=== PATIENT | male | born 1930 | race Caucasian/White ===

== ENCOUNTER 2017-11-21 16:44 | Emergency (ER) | payer MEDICARE ==
--- NOTE | 2017-11-21 17:45 | RADRPT ---
EXAM DATE/TIME: 11/21/2017 17:23 [place] COMPARISON: No previous studies available for comparison. INDICATIONS : Chest pain. MEDICAL HISTORY : None. SURGICAL HISTORY : None. ENCOUNTER: Initial ACUITY: 1 day PAIN SCORE: 3/10 LOCATION: Bilateral chest FINDINGS: A single view of the chest demonstrates the lungs to be symmetrically aerated without evidence of mas s, infiltrate or effusion. The cardiomediastinal contours are unremarkable. Osseous structures are intact. CONCLUSION: No acute disease. Yoan Rowan Jr., MD on November 21, 2017 at 17:43 Board Certified Radiologist. This report was verified electronically.
[2017-11-21 17:59] LABS: AUTOMATED NEUTROPHIL # 13.5 TH/MM3 (1.8-7.7); BASOPHIL % 0.3 % (0.0-2.0); EOSINOPHIL # 0.1 TH/MM3 (0-0.4); EOSINOPHIL % 0.4 % (0.0-4.0); HEMATOCRIT 44.6 % (39.0-51.0); HEMOGLOBIN 15.2 GM/DL (13.0-17.0); LYMPH % 1.1 % (9.0-44.0); LYMPHOCYTE # 0.2 TH/MM3 (1.0-4.8); MEAN CELL VOLUME 85.9 FL (80.0-100.0); MEAN CORPUSCULAR HEMOGLOBIN 29.3 PG (27.0-34.0); MEAN CORPUSCULAR HGB CONC 34.1 % (32.0-36.0); MEAN PLATELET VOLUME 7.3 FL (7.0-11.0); MONO % 6.3 % (0.0-8.0); MONOCYTE # 0.9 TH/MM3 (0-0.9); NEUT % 91.9 % (16.0-70.0); PLATELET COUNT 235 TH/MM3 (150-450); RED BLOOD COUNT 5.19 MIL/MM3 (4.50-5.90); RED CELL DISTRIBUTION WIDTH 13.7 % (11.6-17.2); WHITE BLOOD COUNT 14.7 TH/MM3 (4.0-11.0)
[2017-11-21 18:14] LABS: PROTHROMBIN TIME - PATIENT 10.6 SEC (9.8-11.6)
[2017-11-21 18:28] LABS: BICARBONATE 23.5 MEQ/L (21.0-32.0); BLOOD UREA NITROGEN 13 MG/DL (7-18); CALCIUM 8.5 MG/DL (8.5-10.1); CHLORIDE 100 MEQ/L (98-107); CREATININE 0.99 MG/DL (0.60-1.30); GLOMERULAR FILTRATION RATE 72 ML/MIN (>89); GLUCOSE,RANDOM 141 MG/DL (74-106); SODIUM (NA) 134 MEQ/L (136-145)
[2017-11-21 18:32] LABS: TROPONIN I LESS THAN 0.02 NG/ML (0.02-0.05)
[2017-11-21 19:01] VITALS: RESP 16; O2SAT 97
--- NOTE | 2017-11-21 19:57 | PD ---
HPI Chief Complaint: Syncope/Near-Syncope Time Seen by Provider: 19:34 Travel History International Travel<30 days: No Contact w/Intl Traveler<30days: No Traveled to known affect area: No History of Present Illness HPI 87-year-old male complains of near syncope. Patient states that he fell this afternoon. Patient states that he did not lose consciousness. Patient denies any headache. Patient denies any visual change. Patient denies any neck pain. Patient denies any chest pain or shortness of breath. Patient denies abdominal pain. EMS was called. Patient had a near syncopal episode at the scene and started having nausea vomiting. He vomited once. Patient states that he vomited once. Patient was given Zofran 4 mg by EMS. Patient was transported to the ED for evaluation. Patient denies any fever chills. Patient denies any coughing congestion. Patient denies any focal weakness or numbness of extremity. Patient denies any dysuria or frequency. Patient denies any injury from the fall this afternoon. Patient denies any medical history. Patient is not on any routine medication. Patient denies any alcohol or illicit drug abuse. [facility] Past Medical History Medical History: Denies Significant Hx Past Surgical History Surgical History: Unable to Obtain Social History Alcohol Use: No Tobacco Use: No Allergies-Medications Reported Meds & Prescriptions Reported Meds & Active Scripts Active No Active Prescriptions or Reported Medications Review of Systems General / Constitutional: No: Fever Eyes: No: Visual changes HENT: No: Headaches Cardiovascular: No: Chest Pain or Discomfort Respiratory: No: Shortness of Breath Gastrointestinal: No: Abdominal Pain Genitourinary: No: Dysuria Musculoskeletal: No: Pain Skin: No Rash Neurologic: No: Weakness Psychiatric: No: Depression Endocrine: No: Polydipsia Hematologic/Lymphatic: No: Easy Bruising Physical Exam Narrative GENERAL: Well-nourished, well-developed patient. SKIN: Focused skin assessment warm/dry. HEAD: Normocephalic. EYES: No scleral icterus. No injection or drainage. Pupils 1.5 mm equal reactive. NECK: Supple, trachea midline. No JVD or lymphadenopathy. CARDIOVASCULAR: Regular rate and rhythm without murmurs, gallops, or rubs. RESPIRATORY: Breath sounds equal bilaterally. No accessory muscle use. GASTROINTESTINAL: Abdomen soft, non-tender, nondistended. MUSCULOSKELETAL: No cyanosis, or edema. BACK: Nontender without obvious deformity. No CVA tenderness. Neurologic exam: Patient is awake and alert oriented 3. Patient moves all extremity well. Patient can ambulate normally in the hallway without any problem. No obvious focal neurological deficit. Data Data Last Documented VS Vital Signs Date Time Temp Pulse Resp B/P (MAP) Pulse Ox O2 Delivery O2 Flow Rate FiO2 11/21/17 19:01 98 Room Air 11/21/17 19:01 16 Orders Orders Electrocardiogram (11/21/17 17:14) Complete Blood Count With Diff (11/21/17 17:14) Basic Metabolic Panel (Bmp) (11/21/17 17:14) Ckmb (Isoenzyme) Profile (11/21/17 17:14) Troponin I (11/21/17 17:14) Chest, Single Ap (11/21/17 17:14) Iv Access Insert/Monitor (11/21/17 17:14) Ecg Monitoring (11/21/17 17:14) Oxygen Administration (11/21/17 17:14) Oximetry (11/21/17 17:14) Act Partial Throm Time (Ptt) (11/21/17 17:14) Prothrombin Time / Inr (Pt) (11/21/17 17:14) Labs Laboratory Tests Test 11/21/17 17:50 White Blood Count 14.7 TH/MM3 Red Blood Count 5.19 MIL/MM3 Hemoglobin 15.2 GM/DL Hematocrit 44.6 % Mean Corpuscular Volume 85.9 FL Mean Corpuscular Hemoglobin 29.3 PG Mean Corpuscular Hemoglobin Concent 34.1 % Red Cell Distribution Width 13.7 % Platelet Count 235 TH/MM3 Mean Platelet Volume 7.3 FL Neutrophils (%) (Auto) 91.9 % Lymphocytes (%) (Auto) 1.1 % Monocytes (%) (Auto) 6.3 % Eosinophils (%) (Auto) 0.4 % Basophils (%) (Auto) 0.3 % Neutrophils # (Auto) 13.5 TH/MM3 Lymphocytes # (Auto) 0.2 TH/MM3 Monocytes # (Auto) 0.9 TH/MM3 Eosinophils # (Auto) 0.1 TH/MM3 Basophils # (Auto) 0.0 TH/MM3 CBC Comment DIFF FINAL Differential Comment Prothrombin Time 10.6 SEC Prothromb Time International Ratio 1.0 RATIO Activated Partial Thromboplast Time 23.8 SEC Blood Urea Nitrogen 13 MG/DL Creatinine 0.99 MG/DL Random Glucose 141 MG/DL Calcium Level 8.5 MG/DL Sodium Level 134 MEQ/L Potassium Level 4.2 MEQ/L Chloride Level 100 MEQ/L Carbon Dioxide Level 23.5 MEQ/L Anion Gap 11 MEQ/L Estimat Glomerular Filtration Rate 72 ML/MIN Total Creatine Kinase 39 U/L Troponin I LESS THAN 0.02 NG/ML MDM Medical Decision Making Medical Screen Exam Complete: Yes Emergency Medical Condition: Yes Differential Diagnosis Differential diagnosis including near syncope, fall. Narrative Course 87-year-old male with near syncope and for this afternoon. Patient is asymptomatic now. Vital signs stable. Blood pressure 136/77. Pulse 99. Respiratory 16. Pulse oximetry 98%. Diagnosis Primary Impression: Near syncope Patient Instructions: General Instructions Additional Instructions: Follow up with local physician. Return as needed. Med/Other Pt SpecificInfo: No Change to Meds Scripts No Active Prescriptions or Reported Meds Disposition: 01 DISCHARGE HOME Condition: Stable Johnny Mcintosh MD Nov 21, 2017 19:57
--- NOTE | 2017-11-23 00:15 | EKG ---
Date Performed: 11/21/2017 Time Performed: 17:50:37 PTAGE: 87 years EKG: SINUS TACHYCARDIA WITH FIRST DEGREE AV BLOCK WITH FREQUENT ECTOPIC PREMATURE COMPLEXES POSS IBLE RIGHT VENTRICULAR CONDUCTION DELAY ABNORMAL ECG NO PREVIOUS TRACING DOCTOR: Anthony Cornejo Interpretating Date/Time 11/23/2017 00:14:13
== END 2017-11-21 20:32 | disposition home or self-care (01) ==
LOC: NEPD 16:44
DX: R55 Syncope and collapse (principal)
CPT/HCPCS: 71045; 80048; 82550; 84484; 85025; 85610; 85730; 93005; 99285